=== PATIENT | male | born 1990 | race Caucasian/White ===

== ENCOUNTER 2017-04-07 08:58 | Emergency (ER) | payer SELFPAY ==
[2017-04-07 09:46] LABS: HEMOGLOBIN 12.7 gm/dl (14.0-17.5); RED BLOOD COUNT 4.57 M/UL (4.20-5.50); WHITE BLOOD COUNT 4.9 K/UL (4.5-11.0)
[2017-04-07 10:03] LABS: BUN/CREATININE RATIO 9 (0-10)
== END 2017-04-07 12:48 | disposition home or self-care (01) ==
LOC: ER1 08:58
PROVIDERS: Preventive Medicine Occupational Medicine
DX: B34.9 Viral infection, unspecified (principal); Z87.891 Personal history of nicotine dependence
CPT/HCPCS: 36415; 80053; 80307; 81001; 85025; 86403; 87081; 87880; 96361; 96374; 99284; J2405